=== PATIENT | male | born 1955 | race African-American/Black ===

== ENCOUNTER 2025-03-03 21:09 | Inpatient (IN) | payer MEDICARE, OTHER ==
[~2025-03-03] VITALS: Ht 165.1 cm; Wt 100.0 kg
[~2025-03-03 21:09] MED LIST: ALLO100T PO; ARMO250T2 PO; BENA-8 PO; HCTZ; HYDR25TA PO; NAPR-1195 PO; SLOWK8 PO
[2025-03-03 21:45] LABS: BASOPHILS % (AUTO) 0.4 % (0.0-2.0); EOSINOPHILS % (AUTO) 5.4 % (1.0-6.0); HEMATOCRIT 45.3 % (41-53); HEMOGLOBIN 14.7 g/dL (13.5-17.5); LYMPHOCYTES # (AUTO) 1.8 K/uL (1.0-4.8); LYMPHOCYTES % (AUTO) 30.9 % (22.0-44.0); MEAN CORPUSCULAR HEMOGLOBIN 28.1 pg (26.0-34.0); MEAN CORPUSCULAR HGB CONC 32.4 G/dL (31.0-37.0); MEAN CORPUSCULAR VOLUME 87 fL (80-100); MONOCYTES # (AUTO) 0.7 K/uL (0.1-1.0); MONOCYTES % (AUTO) 11.2 % (2.0-9.0); NEUTROPHILS # (AUTO) 3.1 K/uL (1.8-7.7); NEUTROPHILS % (AUTO) 52.1 % (40.0-70.0); PLATELET COUNT (AUTO) 211 K/uL (150-450); RED BLOOD CELL COUNT(AUTO) 5.23 MIL/uL (4.50-5.90)
[2025-03-03 21:56] LABS: ANION GAP 10 mmol/L (8-16); CALCIUM, TOTAL 9.7 mg/dL (8.8-10.5); CARBON DIOXIDE 32 mmol/L (22-29); CHLORIDE 102 mmol/L (98-107); CREATININE 0.99 mg/dL (0.60-1.30); GLOMERULAR FILTR. RATE CALC > 60 mL/min (>60); GLUCOSE,RANDOM 196 mg/dL (70-110); POTASSIUM 3.8 mmol/L (3.5-5.1); SODIUM SERUM 144 mmol/L (136-145); UREA NITROGEN, BLOOD 11 mg/dL (7-18)
[2025-03-03] MEDS: IPRATROPIUM BROMIDE 0.5 MG/2.5 ML NEB SOLUTION NEB ONE (21:56)
[2025-03-03] MEDS: ALBUTEROL SULFATE 2.5 MG/0.5 ML NEB SOLUTION NEB ONE (21:56)
[2025-03-03 22:00] VITALS: PULSE 98; PULSE 99; RESP 20; O2SAT 98
[2025-03-03 22:00] LABS: BILIRUBIN,DIRECT 0.1 mg/dL (0.00-0.20); BILIRUBIN,TOTAL 0.4 mg/dL (0.1-1.0); TOTAL PROTEIN, SERUM 7.6 g/dL (6.4-8.2)
[2025-03-03 22:05] LABS: CREATINE KINASE, TOTAL ONLY 239 U/L (39-308); TROPONIN I-HIGH SENSITIVITY 31 ng/L (<76)
[2025-03-03 22:05] LABS: COVID AG,FIA SOURCE NASAL SWAB
[2025-03-03 22:07] LABS: B-TYPE NATRIURETIC PEPTIDE 17 pg/mL (0-100)
[2025-03-03 22:16] VITALS: PULSE 101; RESP 20; O2SAT 99
[2025-03-03 22:28] LABS: INFLUENZA TYPE A NEGATIVE FOR TYPE A (NEGATIVE); INFLUENZA TYPE B NEGATIVE FOR TYPE B (NEGATIVE); SARS-COV2 (COVID) ANTIGEN,FIA Negative (Negative)
[2025-03-03] MEDS: PredniSONE 20 MG TABLET PO ONE (22:29)
[2025-03-03 23:09] LABS: APPEARANCE,URINE CLEAR (CLEAR); BILIRUBIN,URINE NEGATIVE (NEGATIVE); COLOR,URINE LIGHT YELLOW (YELLOW); GLUCOSE, URINE (UA) 150-200 mg/dL (NEGATIVE); KETONES,URINE NEGATIVE (NEGATIVE); LEUKOCYTE ESTERASE ,URINE NEGATIVE (NEGATIVE); NITRATE,URINE NEGATIVE (NEGATIVE); OCCULT BLOOD,URINE NEGATIVE (NEGATIVE); PROTEIN,URINE TRACE mg/dL (NEGATIVE); SPECIFIC GRAVITIY, URINE 1.021 (1.003-1.030); UROBILINOGEN,URINE <=1.0 mg/dL (<=1.0)
[2025-03-03] MEDS ORDERED: DEXTROSE 50%-WATER 25 GM/50 ML SYRINGE IVP PRN (23:15)
[2025-03-03] MEDS ORDERED: LISINOPRIL 20 MG TABLET PO SCH (23:15)
[2025-03-03] MEDS ORDERED: ONDANSETRON HCL 4 MG/2 ML VIAL IVP PRN (23:15)
[2025-03-03 23:21] LABS: BACTERIA,URINE Rare /HPF (None Seen); RBC,URINE 0-2 /HPF (0-2); SQUAMOUS EPITHELIAL CELL,UR Rare /LPF (None Seen); WBC,URINE 0-2 /HPF (0-5)
[2025-03-03] MEDS: MONTELUKAST SODIUM 10 MG TABLET PO SCH (23:28)
[2025-03-03] MEDS: LISINOPRIL 10 MG TABLET PO SCH (23:29)
[2025-03-04] VITALS (7 sets, daily range): BP systolic 140–157; BP diastolic 81–93; PULSE 83–93; RESP 18–19; TEMP 97.6–98.3; O2SAT 95–97
[2025-03-04] MEDS: HEPARIN SODIUM,PORCINE 5,000 UNITS/ML VIAL SQ SCH
[2025-03-04] MEDS: MethylPREDNISolone SOD SUCC 125 MG/2 ML VIAL IVP SCH (06:09)
[2025-03-04] MEDS: INSULIN LISPRO 100 UNITS/ML SQ PRN (07:10)
[2025-03-04] MEDS: DOCUSATE SODIUM 100 MG CAPSULE PO SCH (09:01)
[2025-03-04] MEDS: FAMOTIDINE 20 MG TABLET PO SCH (09:01)
[2025-03-04] MEDS ORDERED: MORPHINE SULFATE 2 MG/ML SYRINGE IVP PRN (18:45)
[2025-03-04] MEDS: ACETAMINOPHEN 325 MG TABLET PO PRN (19:03)
[2025-03-04 19:18] LABS: TROPONIN I-HIGH SENSITIVITY 20 ng/L (<76)
[2025-03-04] MEDS: LISINOPRIL 20 MG TABLET PO SCH (20:19)
[2025-03-05] VITALS (7 sets, daily range): BP systolic 104–160; BP diastolic 79–91; PULSE 74–81; RESP 17–22; TEMP 97–98.3; O2SAT 95–99
[2025-03-05 06:26] LABS: EOSINOPHILS % (AUTO) 0 % (1.0-6.0); HEMATOCRIT 44.3 % (41-53); HEMOGLOBIN 14.6 g/dL (13.5-17.5); LYMPHOCYTES # (AUTO) 0.8 K/uL (1.0-4.8); LYMPHOCYTES % (AUTO) 6.3 % (22.0-44.0); MEAN CORPUSCULAR HEMOGLOBIN 28.2 pg (26.0-34.0); MEAN CORPUSCULAR HGB CONC 32.9 G/dL (31.0-37.0); MEAN CORPUSCULAR VOLUME 86 fL (80-100); MONOCYTES # (AUTO) 0.6 K/uL (0.1-1.0); MONOCYTES % (AUTO) 4.6 % (2.0-9.0); NEUTROPHILS # (AUTO) 11.4 K/uL (1.8-7.7); PLATELET COUNT (AUTO) 217 K/uL (150-450); RED BLOOD CELL COUNT(AUTO) 5.17 MIL/uL (4.50-5.90); WHITE BLOOD COUNT (AUTO) 12.8 K/uL (4.5-11.0)
[2025-03-05 06:34] LABS: NEUTROPHILS % (AUTO) 89.1 % (40.0-70.0)
[2025-03-05 06:36] LABS: ANION GAP 10 mmol/L (8-16); CALCIUM, TOTAL 9.5 mg/dL (8.8-10.5); CARBON DIOXIDE 27 mmol/L (22-29); CHLORIDE 103 mmol/L (98-107); CREATININE 1.06 mg/dL (0.60-1.30); GLOMERULAR FILTR. RATE CALC > 60 mL/min (>60); GLUCOSE,RANDOM 265 mg/dL (70-110); POTASSIUM 4.1 mmol/L (3.5-5.1); SODIUM SERUM 140 mmol/L (136-145); UREA NITROGEN, BLOOD 24 mg/dL (7-18)
[2025-03-05] MEDS ORDERED: NITROGLYCERIN 0.4 MG SUBLINGUAL TABLET #25 SL PRN (07:45)
[2025-03-05] MEDS: ALLOPURINOL 100 MG TABLET PO SCH (08:35)
[2025-03-05] MEDS: ASPIRIN 81 MG DR TABLET PO SCH (08:36)
[2025-03-05] MEDS: POTASSIUM CHLORIDE 8 MEQ ER TABLET PO SCH (08:39)
[2025-03-05 08:55] LABS: TROPONIN I-HIGH SENSITIVITY 15 ng/L (<76)
[2025-03-05] MEDS: BENAZEPRIL HCL 20 MG TABLET PO SCH (09:00)
[2025-03-05] MEDS: METOPROLOL TARTRATE 25 MG TABLET PO SCH (09:00)
[2025-03-05] MEDS: HYDROCHLOROTHIAZIDE 25 MG TABLET PO SCH (09:00)
[2025-03-05] MEDS ORDERED: 0.9% SODIUM CHLORIDE 5 ML NEB SOLUTION NEB ONE (14:40)
[2025-03-05] MEDS: ALBUTEROL SULFATE 2.5 MG/0.5 ML NEB SOLUTION NEB PRN (14:43)
[2025-03-06] VITALS: BP 145/85; PULSE 67; RESP 18; TEMP 98.1; O2SAT 97
[2025-03-06 00:08] VITALS: BP 132/81; PULSE 60; RESP 18; TEMP 98.2; O2SAT 97
[2025-03-06 04:42] VITALS: BP 157/93; PULSE 77; RESP 18; TEMP 97.7; O2SAT 97
[2025-03-06 06:28] LABS: BASOPHILS % (AUTO) 0.2 % (0.0-2.0); EOSINOPHILS % (AUTO) 0 % (1.0-6.0); HEMATOCRIT 42.9 % (41-53); HEMOGLOBIN 14.1 g/dL (13.5-17.5); LYMPHOCYTES # (AUTO) 0.7 K/uL (1.0-4.8); LYMPHOCYTES % (AUTO) 5.9 % (22.0-44.0); MEAN CORPUSCULAR HEMOGLOBIN 28.2 pg (26.0-34.0); MEAN CORPUSCULAR VOLUME 86 fL (80-100); MONOCYTES # (AUTO) 0.5 K/uL (0.1-1.0); MONOCYTES % (AUTO) 4.1 % (2.0-9.0); NEUTROPHILS # (AUTO) 10.3 K/uL (1.8-7.7); PLATELET COUNT (AUTO) 205 K/uL (150-450); RED BLOOD CELL COUNT(AUTO) 5.01 MIL/uL (4.50-5.90); RED CELL DISTRIBUTION WIDTH 15.3 % (11.5-14.5); WHITE BLOOD COUNT (AUTO) 11.4 K/uL (4.5-11.0)
[2025-03-06 06:32] LABS: NEUTROPHILS % (AUTO) 89.8 % (40.0-70.0)
[2025-03-06 06:40] LABS: ANION GAP 10 mmol/L (8-16); CALCIUM, TOTAL 9.4 mg/dL (8.8-10.5); CARBON DIOXIDE 28 mmol/L (22-29); CHLORIDE 102 mmol/L (98-107); CREATININE 0.98 mg/dL (0.60-1.30); GLOMERULAR FILTR. RATE CALC > 60 mL/min (>60); GLUCOSE,RANDOM 290 mg/dL (70-110); POTASSIUM 4.1 mmol/L (3.5-5.1); SODIUM SERUM 140 mmol/L (136-145); UREA NITROGEN, BLOOD 23 mg/dL (7-18)
[2025-03-06 07:11] VITALS: BP 151/79; PULSE 82; RESP 17; TEMP 97.7; O2SAT 97
[2025-03-06] MEDS: METOPROLOL TARTRATE 50 MG TABLET PO SCH (08:06)
[2025-03-06 11:51] VITALS: BP 142/84; PULSE 84; RESP 18; TEMP 97.3; O2SAT 98
[2025-03-06] MEDS ORDERED: FAMO20 PO (13:27)
[2025-03-06] MEDS ORDERED: ASPI-1450 PO (13:27)
[2025-03-06] MEDS ORDERED: METO50 PO (13:28)
[2025-03-06] MEDS ORDERED: MONT-35 PO (13:29)
[2025-03-06] MEDS ORDERED: PRED5TAB PO (13:32)
[2025-03-06] MEDS ORDERED: FLUT1BLS10 IH (13:35)
[2025-03-06] MEDS ORDERED: ALBU18HF12 IH (13:36)
[2025-03-06] MEDS ORDERED: LEVO-72 PO (13:37)
[2025-03-06 15:40] VITALS: BP 136/86; PULSE 80; RESP 18; O2SAT 97
== END 2025-03-06 16:50 | disposition home or self-care (01) | DRG 189 ==
LOC: EMS 21:09 → EDH 23:06 → 5S 03-04 02:46
PROVIDERS: ADMIT Internal Medicine; ATTEND Internal Medicine
DX: J96.01 Acute respiratory failure with hypoxia (principal); J44.1 Chronic obstructive pulmonary disease with (acute) exacerbation; I20.0 Unstable angina; E11.9 Type 2 diabetes mellitus without complications; E66.01 Morbid (severe) obesity due to excess calories; I10 Essential (primary) hypertension; Z20.822 Contact with and (suspected) exposure to COVID-19; M10.9 Gout, unspecified; J98.4 Other disorders of lung; Z79.82 Long term (current) use of aspirin; Z79.899 Other long term (current) drug therapy; Z83.3 Family history of diabetes mellitus; Z87.891 Personal history of nicotine dependence; Z91.010 Allergy to peanuts; Z91.018 Allergy to other foods; Z68.36 Body mass index [BMI] 36.0-36.9, adult
CPT/HCPCS: 71045; 74176; 80048; 80076; 81001; 82550; 83880; 84484; 85025; 87804; 93005; 93306; 94640; 99285; G0378; J1644; J2270; J2919; 36415-L1; 36415-TC; J7613